=== PATIENT | male | born 1995 | race Caucasian/White ===

== ENCOUNTER 2017-08-20 02:36 | Emergency (ER) | payer OTHER ==
[2017-08-20 02:41] VITALS: BP 125/74; PULSE 70; RESP 16; TEMP 98.6; O2SAT 96
--- NOTE | 2017-08-20 02:52 | EDPHY ---
H & P Stated Complaint: left side of neck swelling sore throat HPI/ROS: HPI CHIEF COMPLAINT: Left neck swelling and swelling underneath the left side of the tongue HISTORY OF PRESENT ILLNESS: This patient is a 22-year-old male, is otherwise healthy no significant medical history does not take any daily medications he presents emergency room with swelling to left side of his neck and under his left tongue worse over the past 48 hr. He reports no fever. No trouble swallowing. Denies any trauma. States he has had a salivary stone in the past. Past Medical History: Salivary stone. Past Surgical History: Denies recent surgery Social History: History of Polysubstance abuse Family History: Denies ROS REVIEW OF SYSTEMS: A comprehensive 10 point review of systems is otherwise negative aside from elements mentioned in the history of present illness. Exam Constitutional well nontoxic no acute distress triage nursing summary reviewed , vital signs reviewed, awake/alert. Eyes normal conjunctivae and sclera, EOMI, PERRLA. HENT left submandibular region is full and tender consistent with submandibular lymphadenopathy in 1 particular region possibly salivary gland, additionally under his left side of his tongue the salivary gland is swollen and there is a white lesion at the head of the opening of the salivary gland, no signs of Pardeep's, uvula midline, posterior pharynx unremarkable, moist mucus membranes, no epistaxis, neck supple/ no meningismus, no raccoon eyes. Respiratory clear to auscultation bilaterally, normal breath sounds, no respiratory distress, no wheezing. Cardiovascular rate normal, regular rhythm, no murmur, no edema, distal pulses normal. Gastrointestinal soft, non-tender, no rebound, no guarding, normal bowel sounds, no distension, no pulsatile mass. Genitourinary no CVA tenderness. Musculoskeletal no midline vertebral tenderness, full range of motion, no calf swelling, no tenderness of extremities, no meningismus, good pulses, neurovascularly intact. Skin pink, warm, & dry, no rash, skin atraumatic. Neurologic awake, alert and oriented x 3, AAOx3, moves all 4 extremities equally, motor intact, sensory intact, CN II-XII intact, normal cerebellar, normal vision, normal speech. Psychiatric normal mood/affect. Heme/Lymph/Immune no lymphadenopathy. Differential Diagnosis: Includes but is not limited to in a particular order salivary gland stone, obstructing salivary gland, salivary gland infection Medical Decision Making: Plan for this patient appears well nontoxic. I recommend he sucks on lemon drops, additionally manipulated his salivary gland with gentle manipulation massage, additionally warm compresses. Additionally return to the ER for worsening symptoms. Additionally follow up with ENT. ENT referral provided. Return if worse he understands. This includes worsening pain, swelling, fever. Source: Patient - Personal History Current Tetanus/Diphtheria Vaccine: Yes Current Tetanus Diphtheria and Acellular Pertussis (TDAP): Yes - Medical/Surgical History Hx Asthma: Yes Hx Chronic Respiratory Disease: No Hx Diabetes: No Hx Cardiac Disease: No Hx Renal Disease: No Hx Cirrhosis: Yes Hx Alcoholism: No Hx HIV/AIDS: No Hx Splenectomy or Spleen Trauma: No Other PMH: teeth surgery - Social History Smoking Status: Current every day smoker Constitutional: Initial Vital Signs Temperature (C) 37.0 C 08/20/17 02:38 Heart Rate 70 08/20/17 02:38 Respiratory Rate 16 08/20/17 02:38 Blood Pressure 125/74 H 08/20/17 02:38 O2 Sat (%) 96 08/20/17 02:38 O2 Delivery Mode Room Air Allergies/Adverse Reactions: Penicillins Allergy (Verified 08/20/17 02:41) Home Medications: Medication Instructions Recorded Albuterol [Proventil Inhaler] 2 puffs IH Q4 12/30/12 Cetirizine [ZyrTEC 10 mg (RX)] 10 mg PO DAILY 12/30/12 Carbamazepine 08/20/17 OLANZapine 08/20/17 Sertraline HCl 08/20/17 Departure - Departure Disposition: Home, Routine, Self-Care Clinical Impression: Stone of salivary gland or duct Condition: Good Instructions: Sialoadenitis (ED) Additional Instructions: 1. Warm compresses to your neck. 2. Suck on lemon drops. 3. Gentle massage of your gland underneath your tongue 4. Follow up with ENT. 5. Return to the emergency room if you have worsening symptoms questions or concerns. Referrals: NONE *PRIMARY CARE P,. [Primary Care Provider] - As per Instructions Huy Thompson MD [Medical Doctor] - As per Instructions
== END 2017-08-20 03:27 | disposition home or self-care (01) ==
DX: K11.5 Sialolithiasis (principal); J45.909 Unspecified asthma, uncomplicated; F17.200 Nicotine dependence, unspecified, uncomplicated

== ENCOUNTER → 2017-10-22 | Outpatient (CLI) | payer OTHER | LOC: BMCIMAGING 13:45 | PROVIDERS: ATTEND Family Medicine | DX: M25.461 Effusion, right knee (principal); M25.462 Effusion, left knee ==

== ENCOUNTER 2017-11-18 06:35 | Inpatient (IN) | payer OTHER ==
[2017-11-18] MEDS ORDERED: KETOROLAC 30 MG/1 ML SDV IVP ONE (07:12)
--- NOTE | 2017-11-18 07:24 | EDPHY ---
HPI/HX/ROS/PE/MDM Narrative: CHIEF COMPLAINT: Rectal pain HPI: The patient is a 22-year-old male with a history of prior polysubstance abuse. He complains of right-sided rectal pain for approximately the last 4 days. He describes the pain as severe and sharp, worse with sitting and bowel movement. He does describe some mild blood in stool and previous duct harder stools although none currently. He denies fever or abdominal pain. 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 He denies trauma to her rectum. REVIEW OF SYSTEMS: Aside from elements discussed in the HPI, a comprehensive 10-point review of systems was reviewed and is negative. PMH: History of polysubstance abuse, currently recovering. SOCIAL HISTORY: Student. Single. Denies current substance abuse. PHYSICAL EXAM: General:Patient is alert, in no acute distress. ENT:Eyes are normal to inspection. ENT inspection normal. Neck: Normal inspection. Full range of motion. Respiratory:No respiratory distress. Breath sounds normal bilaterally. Cardiovascular: Regular rate and rhythm. Strong peripheral pulses. Normal cap refill. Abdomen:The abdomen is nontender to palpation. There are no peritoneal signs. There are normal bowel sounds. Rectal: External exam normal. No discharge. Tenderness in the right side on very superficial digital rectal exam. Back: Normal to inspection. No tenderness to palpation. Skin: Normal color. No rash. Warm and dry. Extremities: Normal appearance. Full range of motion. Neuro: Oriented x3. Normal motor function. Normal sensory function. ED Course: 07: Consulted Dr. Gutierrez from Surgery. He recommends CT and will evaluate patient. CTAP, read by Lul as positive for perianal abscess, multiloculated. Matt at bedside 0830. Plan for OR drainage and admission. - Data Points Laboratory Results: Laboratory Results 11/18/17 07:15 11/18/17 07:15 11/18/17 11/18/17 07:15 07:15 WBC 15.06 10^3/uL H 10^3/uL (3.80-9.50) RBC 4.60 10^6/uL 10^6/uL (4.40-6.38) Hgb 12.9 g/dL L g/dL (13.7-17.5) Hct 38.4 % L % (40.0-51.0) MCV 83.5 fL fL (81.5-99.8) MCH 28.0 pg pg (27.9-34.1) MCHC 33.6 g/dL g/dL (32.4-36.7) RDW 12.1 % % (11.5-15.2) Plt Count 300 10^3/uL 10^3/uL (150-400) MPV 9.8 fL fL (8.7-11.7) Neut % (Auto) 75.6 % H % (39.3-74.2) Lymph % (Auto) 13.8 % L % (15.0-45.0) Swisher % (Auto) 7.7 % % (4.5-13.0) Eos % (Auto) 2.0 % % (0.6-7.6) Baso % (Auto) 0.5 % % (0.3-1.7) Nucleat RBC Rel Count 0.0 % % (0.0-0.2) Absolute Neuts (auto) 11.39 10^3/uL H 10^3/uL (1.70-6.50) Absolute Lymphs (auto) 2.08 10^3/uL 10^3/uL (1.00-3.00) Absolute Monos (auto) 1.16 10^3/uL H 10^3/uL (0.30-0.80) Absolute Eos (auto) 0.30 10^3/uL 10^3/uL (0.03-0.40) Absolute Basos (auto) 0.07 10^3/uL 10^3/uL (0.02-0.10) Absolute Nucleated RBC 0.00 10^3/uL 10^3/uL (0-0.01) Immature Gran % 0.4 % % (0.0-1.1) Immature Gran # 0.06 10^3/uL 10^3/uL (0.00-0.10) Sodium 140 mEq/L mEq/L (135-145) Potassium 3.8 mEq/L mEq/L (3.5-5.2) Chloride 105 mEq/L mEq/L (97-110) Carbon Dioxide 22 mEq/l mEq/l (22-31) Anion Gap 13 mEq/L mEq/L (8-16) BUN 13 mg/dL mg/dL (7-23) Creatinine 0.8 mg/dL mg/dL (0.7-1.3) Estimated GFR > 60 Glucose 161 mg/dL H mg/dL (70-100) Calcium 9.1 mg/dL mg/dL (8.5-10.4) Medications Given: Discontinued Medications Ketorolac Tromethamine (Toradol) 30 mg IVP EDNOW ONE Stop: 11/18/17 07:13 Last Admin: 11/18/17 07:18 Dose: 30 mg General Time Seen by Provider: 11/18/17 06:51 Initial Vital Signs: Initial Vital Signs Temperature (C) 36.6 C 11/18/17 06:37 Heart Rate 103 H 11/18/17 06:37 Respiratory Rate 18 11/18/17 06:37 Blood Pressure 102/68 11/18/17 06:37 O2 Sat (%) 95 11/18/17 06:37 O2 Delivery Mode Room Air Allergies/Adverse Reactions: Penicillins Allergy (Verified 11/18/17 06:41) Home Medications: Medication Instructions Recorded Albuterol [Proventil Inhaler] 2 puffs IH Q4 12/30/12 Cetirizine [ZyrTEC 10 mg (RX)] 10 mg PO DAILY 12/30/12 Carbamazepine 08/20/17 OLANZapine 08/20/17 Sertraline HCl 08/20/17 Meloxicam 15 mg PO 11/18/17 Departure - Departure Disposition: [facility] Clinical Impression: Sherrill-rectal abscess Condition: Fair Referrals: NONE *PRIMARY CARE P,. [Primary Care Provider] - As per Instructions
[2017-11-18 07:26] LABS: PLATELET COUNT 300 10^3/uL (150-400)
[2017-11-18] MEDS ORDERED: IOPAMIDOL (ISOVUE-300) 100 ML BTL ONE (07:56)
[2017-11-18] MEDS ORDERED: ERTAPENEM 1 GM VIAL IVP ONE (09:05)
[2017-11-18] MEDS ORDERED: HYDROmorphONE/DILAUDID 2 MG/ML INJ IVP ONE (09:05)
[2017-11-18] MEDS ORDERED: NS 1,000 ML IV ONE (09:05)
[2017-11-18] MEDS ORDERED: ONDANSETRON 4 MG/2 ML VIAL IVP ONE (09:18)
[2017-11-18] MEDS ORDERED: KETOROLAC 30 MG/1 ML SDV IVP PRN (09:28)
[2017-11-18] MEDS ORDERED: HYDROmorphONE/DILAUDID 1 MG/ML INJ IVP PRN (09:30)
--- NOTE | 2017-11-18 10:15 | GHP ---
[f rep st] PREOP HISTORY AND PHYSICAL DATE OF ADMISSION: 11/18/2017 ADMITTING DIAGNOSIS: Perirectal abscess. 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 He has complained of perirectal pain for the last 3-4 days. He does not recall passing a hard stool. He did eat a bagel with cream cheese at 6:45 this morning. 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 He is being evaluated for ankylosing spondylitis. He does not recall having David's syndrome. He did have melena 1 month ago, but he is taking nonsteroidal anti- inflammatories on an aggressive basis. He was seen in the ER and a CAT scan of the abdomen and pelvis was performed. It showed no evidence of Crohn disease. His abscess is a horseshoe perirectal abscess. SOCIAL HISTORY: He has been sober for 1 year from alcohol abuse. He does have vape nicotine approximately every hour. He had an adverse reaction to penicillin as manifested by a rash as a baby. CURRENT MEDICATIONS: Include Zoloft 100 mg at bedtime, Zyprexa 5 mg at bedtime , Tegretol 200 mg twice a day, meloxicam 15 mg at bedtime, and he has used Aleve for the last 3 days. PAST MEDICAL HISTORY: He has had wisdom tooth extraction. There is no history of rheumatic fever, tuberculosis or hepatitis, and was recently tested for hepatitis and TB ( negative) because of anticipated immunotherapy in the future. There is no history of transfusions. He is unclear if he has ever had a seizure when he was abusing alcohol. He does not think he has ever had a concussion. His left upper central and lateral incisors and canine were knocked out at one point and they were repositioned. They are in place and viable. He does have asthma and uses an albuterol inhaler on an as needed basis. He had a salivary duct stone removed from his left submandibular salivary duct 1 month ago (office procedure). There are no limitations on his activity. Six weeks ago he had a steroid taper over 10 days starting at 60 mg a day. There are no limits on his activities. PHYSICAL EXAMINATION: He is awake and alert. Skull is normocephalic and atraumatic. He is oriented to person, place, and time. He is pleasant and appropriate. HEENT: Skull is normocephalic. He has normal dental occlusion. His neck is unremarkable. His dentition appears to be in order. NECK: There is no cervical, supraclavicular, axillary or inguinal lymphadenopathy. PULMONARY: His lungs are clear to auscultation. CARDIAC: Cardiac exam shows S1, S2 to be normal. There is a normal split of S2. There are no murmurs, rubs, or gallops. ABDOMEN: Abdomen is soft and nontender. He has normoactive bowel sounds. RECTAL: Rectal examination is not performed. IMPRESSION: Patient with horseshoe perirectal abscess by CT. There is no evidence of Crohn disease on CT. PLAN: I plan to take him to the operating room 8 hours after his bagel consumption for I and D of the perirectal abscess and possible fistulectomy. In the meantime, he will receive ertapenem. He will be watched closely in the ER after receiving that to make sure he does not have a reaction. Transient fecal incontinence and the remote chance of need for sphincter repair has been discussed as has recurrence potential. /[id number]/MODL MTDD
[2017-11-18] MEDS: LR 1,000 ML IV SCH ×2 (13:03→21:57)
[2017-11-18] MEDS ORDERED: BACITRACIN 50,000 UNITS/10 ML SYR IRR ONE (13:07)
[2017-11-18] MEDS ORDERED: LR 1,000 ML IV ONE (13:24)
[2017-11-18] MEDS ORDERED: PROPOFOL 200 MG/20 ML VIAL ONE (13:41)
[2017-11-18] MEDS ORDERED: fentaNYL 250 MCG/5 ML INJ ONE (13:41)
[2017-11-18] MEDS ORDERED: ONDANSETRON 4 MG/2 ML VIAL ONE (13:48)
[2017-11-18] MEDS ORDERED: DEXAMETHASONE 4 MG/ML VIAL ONE (13:48)
[2017-11-18] MEDS ORDERED: ROCURONIUM 50 MG/5 ML VIAL ONE (14:35)
[2017-11-18] MEDS ORDERED: SUCCINYLCHOLINE CHLORIDE 200 MG/10 ML SYR IVP ONE (14:35)
[2017-11-18] MEDS ORDERED: MIDAZOLAM 2 MG/2 ML VIAL ONE (14:43)
[2017-11-18] MEDS ORDERED: LR 500 ML IV PRN (15:27)
[2017-11-18] MEDS ORDERED: HYDROCODONE/APAP 5/325 TAB PO PRN (15:27)
[2017-11-18] MEDS ORDERED: ACETAMINOPHEN 500 MG TAB PO PRN (15:27)
[2017-11-18] MEDS ORDERED: NALOXONE HCL 0.4 MG/ML INJ IVP PRN (15:27)
[2017-11-18] MEDS ORDERED: ALBUTEROL 3 ML DEYVIAL IH PRN (15:27)
[2017-11-18] MEDS ORDERED: HYDROmorphONE/DILAUDID 2 MG/ML INJ IVP PRN (15:27)
[2017-11-18] MEDS ORDERED: ONDANSETRON 4 MG/2 ML VIAL IVP PRN (15:27)
[2017-11-18] MEDS ORDERED: PROMETHAZINE HCL 25 MG/ML INJ IVP PRN (15:27)
[2017-11-18] MEDS ORDERED: oxyCODONE IR 5 MG TAB PO PRN (15:27)
--- NOTE | 2017-11-18 15:27 | PDANEPAE ---
ANE Past Medical History - Cardiovascular History Hx Hypertension: No Hx Arrhythmias: No Hx Chest Pain: No Hx Coronary Artery / Peripheral Vascular Disease: No Hx CHF / Valvular Disease: No Hx Palpitations: No - Pulmonary History Hx COPD: No Hx Asthma/Reactive Airway Disease: No Hx Recent Upper Respiratory Infection: No Hx Oxygen in Use at Home: No Hx Sleep Apnea: No - Endocrine History Hx Diabetes: No Obesity: no ANE Review of Systems Review of systems is: negative Review of Systems: - Exercise capacity Exercise capacity: >=4 METS ANE Patient History - Allergies Allergies/Adverse Reactions: Penicillins Allergy (Verified 11/18/17 09:57) Rash - Home Medications Home medications: home medication list seen and reviewed Home Medications: Meloxicam [Meloxicam] 15 mg PO HS 11/18/17 [Last Taken 11/18/17] OLANZapine [OLANZapine (*)] 5 mg PO HS 11/18/17 [Last Taken 11/17/17] Sertraline HCl [Zoloft 100mg (*)] 100 mg PO HS 11/18/17 [Last Taken 11/17/17] carBAMazepine [Tegretol] 200 mg PO BID 11/18/17 [Last Taken 11/17/17] - NPO status NPO Since - Liquids (Date): 11/18/17 NPO Since - Liquids (Time): 06:30 NPO Since - Solids (Date): 11/18/17 NPO Since - Solids (Time): 06:30 - Smoking Hx Smoking Status: Current every day smoker ANE Labs/Vital Signs - Labs Result Diagrams: 11/18/17 07:15 11/18/17 07:15 - Vital Signs Blood Pressure: 116/80 Heart Rate: 85 Respiratory Rate: 16 O2 Sat (%): 94 Height: 182.88 cm Weight: 63.503 kg ANE Physical Exam - Airway Neck exam: FROM Mallampati Score: Class 1 Mouth exam: normal dental/mouth exam - Pulmonary Pulmonary: no respiratory distress - Cardiovascular Cardiovascular: regular rate and rhythym - ASA Status ASA Status: II ANE Anesthesia Plan Anesthesia Plan: general endotracheal anesthesia Urgent/Emergent Case: Yogesh chowdary completed preop but documented later for safe timely pt care
--- NOTE | 2017-11-18 15:27 | POSTANESTH ---
Post Anesthetic Evaluation Cardiovascular Status: Normal, Stable Respiratory Status: Normal, Stable, Other, See Comment (bronchospasm tx with albuterol neb) Level of Consciousness/Mental Status: Can Participate in Eval Pain Control: Adequate, Prn Tx Ordered Nausea/Vomiting Control: Adequate, Prn Tx Ordered Complications Possibly Related to Anesthesia: None Noted
[2017-11-18] MEDS ORDERED: ALBUTEROL 3 ML DEYVIAL ONE ×2 (15:49→16:50)
--- NOTE | 2017-11-18 15:59 | POSTOPPROG ---
Post Op Note Date of Operation: 11/18/17 Surgeon: Luis Gutierrez Anesthesia: GET(General Endotracheal) Pre-op Diagnosis: perirectal abscess Post-op Diagnosis: perirectal abscess with fistula Indication: perirectal abscess Procedure: I&D perirectal abscess with fistulectomy Findings: perirectal abscess with fistula Inf/Abcess present in the surg proc area at time of surgery?: Yes Depth: Deep Incisional (Fascial) EBL: Minimal Total fluids administered: 500 Complications: none Specimen(s): culture
[2017-11-18] MEDS ORDERED: ALBUTEROL 60 PUFFS/8 GM MDI IH PRN (16:26)
[2017-11-18] MEDS ORDERED: MIDAZOLAM 2 MG/2 ML VIAL IVP ONE (16:27)
[2017-11-18] MEDS ORDERED: ACETAMINOPHEN 500 MG TAB ONE (16:28)
[2017-11-18] MEDS: ACETAMINOPHEN 500 MG TAB PO PRN (16:29)
[2017-11-18] MEDS ORDERED: fentaNYL 100 MCG/2 ML INJ ONE (16:58)
[2017-11-18] MEDS: fentaNYL 100 MCG/2 ML INJ IVP PRN ×4 (17:00→19:14)
--- NOTE | 2017-11-18 18:42 | GOP ---
[f rep st] OPERATIVE REPORT DATE OF OPERATION: 11/18/2017 SURGEON: Luis Gutierrez MD ANESTHESIA: General endotracheal anesthesia. PREOPERATIVE DIAGNOSIS: Perirectal abscess. POSTOPERATIVE DIAGNOSIS: Perirectal abscess with fistula. PROCEDURE PERFORMED: Incision and drainage of perirectal abscess with fistulectomy. FINDINGS: Perirectal abscess with fistula. SPECIMENS: Cultures of the purulent drainage were obtained and sent as the only specimen. INDICATIONS: Perirectal abscess. DESCRIPTION OF PROCEDURE: The patient was placed on the operating table in supine position. After induction of adequate general endotracheal anesthesia, he was placed in lithotomy position using candy-cane stirrups. The perineum was carefully prepped and draped. A surgical time-out was carried out and agreed to by all members of the operative team. A rectal speculum was placed and as expected, a posterior fissure connection was identified. It drained a moderate amount of purulent material. A flexible probe was carefully placed into the tract and I divided the tissue down to track using Bovie electrocautery. All areas were felt to be totally drained at this point. Irrigation was carried out. Hemostasis achieved with Bovie electrocautery. A rectal whistle pack was placed. This is done after the abscess was carefully packed with quarter-inch iodoform gauze. A bulky perineal dressing was applied. Rescue suture been placed in the end of the catheter. The patient is transferred to recovery in stable and satisfactory condition. /[id number]/MODL MTDD
--- NOTE | 2017-11-18 20:13 | GCON ---
[f rep st] CONSULTATION INTERNAL MEDICINE CONSULTATION DATE OF CONSULTATION: 11/18/2017 REQUESTING PHYSICIAN: Luis Gutierrez MD, from General Surgery. REASON FOR CONSULTATION: Medical opinion regarding acute respiratory failure. HISTORY OF PRESENT ILLNESS: The patient is a 22-year-old male who presented to the emergency room th morning with perirectal pain for 4 days. He was diagnosed with a horseshoe perirectal abscess and went to surgery this afternoon for incision and drainage with Dr. Gutierrez. He was found to have a fi stula. He has a reported penicillin rash which was just a one-time rash when he was 1-year-old, and he was administered IV Invanz at 9 o'clock this morning. He went to surgery about 3 o'clock in the a fternoon. Going into surgery, he felt fine except for his perirectal pain. Per Anesthesia, he had s ignificant bronchospasm during extubation and was given albuterol nebulizer and a one-time IV Decadro n while still in surgery. When he first came out to PACU, he was in severe respiratory distress. He was sitting up in bed, diaphoretic, saturating only 87% on 10 L. His chest x-ray at that time showe d new bilateral pulmonary infiltrates. The patient says he is coughing and it feels like an asthma a ttack. As he has had more time in PACU, he has improved. His oxygen needs were going down, and his shortness of breath was starting to improve. He does describe some chest tightness, but he is curren tly much more comfortable than he was just a short time ago. PAST MEDICAL HISTORY: 1. Reactive arthritis of the knee, recently completed a steroid taper 6 weeks ago. Currently, [facility] as an outpatient with Rheumatology to try to determine underlying rheumatologic disease. His C RP was elevated at 50. He was found to be HLA-B27 positive. They are considering a possible connect ion to psoriasis or Crohn disease. Final diagnosis yet to be determined. 2. Asthma. 3. Possible seizure related to previous history of substance abuse. MEDICATIONS: Please see computerized record for full detailed list. ALLERGIES: Penicillin which involved a rash as a baby. SOCIAL HISTORY: He is currently undergoing treatment for addiction. Previously abused cocaine, Adde rall, and marijuana as well as alcohol. He has been sober for 1 year. He denies ever using IV drugs . He continues to nicotine. He is currently attending , lives in an apartment alone. He grew up in [place], and his mom is a local internal medicine physician, currently practicing in [facility]. REVIEW OF SYSTEMS: Complete review of systems obtained. Review of systems negative regarding consti tutional, HEENT, GI, pulmonary, vascular, , hematology, skin, muscular, endocrine, psych, except fo r positives and negatives as in HPI. FAMILY HISTORY: Reviewed, noncontributory to the presenting complaint. PHYSICAL EXAMINATION: GENERAL: Well-developed, well-nourished male. VITAL SIGNS: Temp is 38.3, pu lse 141, blood pressure 118/75, saturating 90% on 5 L. EYES: Normal conjunctivae. Pupils equal and react to light. ENT: Normal ears and nose. Hearing intact. Normal teeth. Oropharynx moist. NEC K: Trachea midline. No thyromegaly. CHEST: Normal effort. LUNGS: Clear to auscultation bilatera lly. CARDIOVASCULAR: Regular rate and rhythm. No murmur. No lower extremity edema. ABDOMEN: Sof t, nontender. No hepatosplenomegaly. SKIN: Warm, dry, intact. No rash. MUSCULOSKELETAL: No cyan osis or clubbing. Strength 5/5 in upper and lower extremities. NEUROLOGIC: Cranial nerves intact. Normal sensation to light touch. PSYCH: Alert and oriented x3. Normal mood and affect. Normal ju dgment and insight. Normal memory. LABORATORY DATA: White count 15.06, hematocrit 38.4, platelets 300. Sodium 140, potassium 3.8, chlo ride 105, bicarb 22, BUN 13, creatinine 0.8, glucose 161. Chest x-ray reviewed by me. My personal interpretation is bilateral pulmonary infiltrates. This carlos e was personally discussed with Dr. Gutierrez regarding postoperative course and respiratory failure. ASSESSMENT AND PLAN: 1. Acute respiratory failure with new bilateral pulmonary infiltrates. He is now rapidly starting t o improve, I assume due to the IV Decadron he received in the OR. Therefore, this does appear to be a steroid responsive phenomenon. I wonder whether he may have had a drug reaction to the Invanz, alt fabio the timing is a little off considering Invanz dose was 9:00 a.m. I will continue him on IV Obdulia u-Medrol. We will recheck a chest x-ray in the morning. We will monitor in the step-down unit overn ight. 2. Perirectal abscess with fistula status post incision and drainage. Cultures have been sent. He also has fever and tachycardia consistent with possible sepsis. We will check blood cultures. We wi ll change his antibiotic to Levaquin and Flagyl, and Infectious Disease consultation. 3. Reactive arthritis, currently workup in process with Rheumatology to determine final diagnosis. Psoriasis and Crohn disease are being considered, incidentally noted to be HLA-B27 positive. 4. History of addiction. He is on multiple psych medications, presumably related to this process. These will be continued. CODE STATUS: Full. ADMISSION STATUS: 1. Will admit to inpatient. Anticipate greater than 2 midnights required for stabilization. 2. DVT prophylaxis. He is low risk. Will ambulate early. /[id number]/MODL
[2017-11-18] MEDS ORDERED: SERTRALINE HCL 100 MG TAB PO SCH ×2 (21:00→21:30)
[2017-11-18] MEDS ORDERED: OLANZapine 5 MG TAB PO SCH ×2 (21:00→21:30)
[2017-11-18] MEDS ORDERED: carBAMazepine 200 MG TAB PO SCH (21:00)
[2017-11-18] MEDS: carBAMazepine 200 MG TAB PO SCH (21:55)
[2017-11-18] MEDS: PSYLLIUM METAMUCIL 1 PKT PO SCH (21:56)
[2017-11-18] MEDS: IPRATROPIUM/ALBUTEROL 3 ML DEYVIAL IH SCH (22:58)
[2017-11-18] MEDS: HYDROmorphone HCL/NS 0.5 MG/ML SYR IVP PRN (22:59)
[2017-11-18] MEDS: methylPREDNISolone SOD SUCC 125 MG/2 ML VIAL IVP SCH (23:02)
[2017-11-19 05:31] LABS: PLATELET COUNT 290 10^3/uL (150-400)
[2017-11-19] MEDS: IPRATROPIUM/ALBUTEROL 3 ML DEYVIAL IH SCH ×3 (05:53→16:01)
[2017-11-19] MEDS: methylPREDNISolone SOD SUCC 125 MG/2 ML VIAL IVP SCH ×2 (06:35→12:41)
[2017-11-19] MEDS: HYDROmorphone HCL/NS 0.5 MG/ML SYR IVP PRN (06:41)
[2017-11-19] MEDS: carBAMazepine 200 MG TAB PO SCH (08:38)
[2017-11-19] MEDS: PSYLLIUM METAMUCIL 1 PKT PO SCH (08:38)
--- NOTE | 2017-11-19 09:59 | PDMN ---
Medical Necessity Medical necessity: [facility] Gastroenterlogy Rectal abscess 1 day- K 61.1 -I/D of perirectal abscess with fistulectomy- post op acute resp. failure with new bilat. pulm. infiltrates, further monitoring eval and tx needed anticipate > 2 midnights
--- NOTE | 2017-11-19 10:04 | ASMTCASEMG ---
Living Arrangements What is your living Answers: With One Parent arrangement? Who do you live with? Type Of Residence What kind of residence do Answers: House you live in? Discharge Plan Comments Coordination Status Comments Notes: Patient is a 22yo single male who was admitted for a rectal abscess who is HLA-B27 positive and has reactive arthritis in his knees. Patient has been sober 1 year from alcohol abuse. Patient will go to the OR for I and D of the perirectal abscess and possible fistulectomy. No therapies have been ordered. Patient will most likely be able to D/C independently to his home in [place]. CM will follow. Date Signed: 11/19/2017 10:03 AM Electronically Signed By:Aziza Marinelli LCSW
[2017-11-19] MEDS ORDERED: FUROSEMIDE 20 MG/2 ML VIAL IVP ONE (11:21)
--- NOTE | 2017-11-19 13:01 | HOSPPROG ---
Hospitalist Progress Note Assessment/Plan: # pulmonary infiltrates - drug reaction vs negative pressure pulm edema vs other - clinically resolved, although still significant on CXR # rectal abscess/fistula s/p I&D - levaquin and flagyl, to be adjusted by ID # reactive arthritis, HLA-B27 positive - following up as outpatient # history of substance abuse Subjective: feels much better today Objective: Vital Signs Temp Pulse Resp BP Pulse Ox 36.5 C 56 L 19 93/45 L 100 11/19/17 08:35 11/19/17 08:35 11/19/17 08:35 11/19/17 08:35 11/19/17 08:35 Laboratory Results 11/19/17 05:18 11/19/17 05:18 11/18/17 11/19/17 11/20/17 05:59 05:59 05:59 Intake Total 2200 Output Total 760 Balance 1440 chart reviewed CXR personally reviewed - Physical Exam Constitutional: no apparent distress, appears nourished Cardiovascular: regular rate and rhythym, no murmur, rub, or gallop Respiratory: no respiratory distress, no rales or rhonchi Gastrointestinal: normoactive bowel sounds, soft, non-tender abdomen, no palpable masses ICD10 Worksheet Patient Problems: Problems Problem Status Onset Sherrill-rectal abscess Acute
[2017-11-19] MEDS ORDERED: metroNIDAZOLE 500 MG TAB PO SCH ×2 (15:00→22:00)
[2017-11-19] MEDS ORDERED: HYDROmorphONE/DILAUDID 2 MG TAB PO PRN (15:01)
[2017-11-19] MEDS: ACETAMINOPHEN 500 MG TAB PO PRN (15:07)
--- NOTE | 2017-11-19 15:36 | GCON ---
[f rep st] CONSULTATION PULMONARY CONSULT DATE OF CONSULTATION: 11/19/2017 HISTORY OF PRESENT ILLNESS: This patient is a 22-year-old male who is in the middle of a workup for a possible ankylosing spondylitis, found to have HLA-B27 positive. The workup is under way at this [facility], and he has arthritis of his knees. In any case, he was complaining of abdominal perirectal molly n and came to the emergency department where a CT scan showed a perirectal abscess. He was taken for incision and drainage by Dr. Gutierrez. The surgery itself was uneventful, but in the recovery room po st extubation he developed severe shortness of breath with stridor and oxygen desaturation and was pl aced on a non-rebreather. A chest x-ray showed diffuse bilateral infiltrates. He had been given Inv anz prior to surgery as well as Flagyl and did have a history of a penicillin allergy. The penicilli n allergy story occurred while he was an , and there was some concern about a viral exanthem at that time, but has tried to avoid penicillins since then. Otherwise, he has had no other episodes l fernandez this. He was observed in the intensive care unit overnight and felt much better today with no di fficulty with breathing. However, he did desaturate while walking around to the upper 80s. REVIEW OF SYSTEMS: Otherwise negative. PAST MEDICAL HISTORY: Includes: 1. HLA-B27 positive history. 2. Remote polysubstance use. 3. History of seizure. 4. History of asthma with no recent exacerbations. He did get some recent steroids, presumably rela nayana to the HLA-B27 status. SOCIAL HISTORY: He does vape some nicotine, but no current alcohol or substance abuse. PAST SURGICAL HISTORY: Includes salivary duct surgery as well as wisdom teeth extractions. FAMILY HISTORY: Noncontributory at this time. MEDICATIONS: Include DuoNeb, Tegretol, now ceftriaxone, Solu-Medrol 60 mg IV q.6 hours, Flagyl, cade zapine, and Zoloft. PHYSICAL EXAM: VITAL SIGNS: He had a blood pressure of 102/50, heart rate of about 56, respirations 19, oxygen saturation was 100% on 3 L nasal cannula and 90% on room air at rest. VITAL SIGNS: He i s a very young, pleasant male in no apparent distress. Able to speak in full sentences without using accessory muscles for breathing. HEENT: Pupils equally round and reactive to light. Nonicteric an d noninjected. Mucous membranes moist without erythema or exudate. No evidence of thrush. NECK: S upple without adenopathy or jugular vein distention and no stridor. Breath sounds were clear to ausc ultation bilaterally. No wheezes, no rales, no coarse breath sounds. HEART: Regular rate and rhyth m without murmurs, rubs, or gallops. ABDOMEN: Soft, nontender, nondistended without hepatosplenomeg itzel. EXTREMITIES: No clubbing, cyanosis, or edema. NEUROLOGIC: Nonfocal, including cranial nerves , deep tendon reflexes. SKIN: Warm and dry, without evidence of rash. OBJECTIVE DATA: Includes a chest x-ray as described above. His white count was 15 yesterday, it is 12.6 today, hematocrit 36, platelets of 290. Potassium was 3.8 yesterday, 4.8 today as requested by his mother. BNP was only 57, but the basic metabolic panel was otherwise normal. ASSESSMENT AND PLAN: 1. Acute respiratory failure requiring high dose oxygen, which is nearly gone now. I think this is postobstructive pulmonary edema likely related to laryngeal spasm at the time of his extubation yeste rday. There is no evidence to support aspiration, no pre-existing symptoms to suggest blossoming pne umonia or infection at this time. His dropping white count may also be indicative of his antibiotics that he is getting for his perirectal abscess, but I do not believe this is present in his lungs. A procalcitonin is pending at this time. The white count may also be explained by the steroids that skinny cowan is currently getting, which can probably be discontinued. 2. Asthma. This does not appear to be an asthma exacerbation. I would use his normal medications. 3. Perirectal abscess is being managed by Surgery as well as Infectious Disease. He was on Invanz p reviously. He is now on ceftriaxone based on cultures. We will continue to follow. If his oxygen s aturation normalizes by this afternoon, he can probably go home. If it is still marginal, I would be in favor of watching him overnight to make sure things do in fact improve as anticipated. /[id number]/MODL
[2017-11-19 16:12] VITALS: BP 127/75
--- NOTE | 2017-11-19 16:22 | GCON ---
[f rep st] CONSULTATION DATE OF CONSULTATION: 11/19/2017 REFERRING PHYSICIAN: Raquel Cristobal MD REASON FOR CONSULTATION: Perirectal abscess. HISTORY OF PRESENT ILLNESS: Patient is a 22-year-old male with a complex recent history related to reactive arthritis of the knees dating back to last fall, who I am asked to see in consultation for perirectal abscess with assistance in antibiotic management. The patient complained of perirectal pain over the last 4 days. This was associated with fever and chills. He had some nausea without vomiting. He does describe having intermittent diarrhea for several months with admixed blood. CT scan of the abdomen and pelvis was performed in the emergency department yesterday with findings of a perirectal abscess measuring 4 cm mediolaterally by 1.5 cm. The patient subsequently underwent operative drainage yesterday with excision of a fistulous tract. Gram stain of the abscess showed 3+ white blood cells with 2+ GPCs in clusters, 2+ GPCs in chains, and 1+ gram-positive rods. Early growth of culture suggests a streptococcal species. The patient was given a dose of ertapenem yesterday at the time of presentation. When the patient awoke postoperatively, the patient described having a cough and shortness of breath, which was new. Chest x-ray showed bilateral infiltrates. These have now improved and the patient's respiratory status is improving as well although he does have some desaturation while off oxygen. He is currently receiving levofloxacin and metronidazole for his perirectal abscess. Given the above findings, I am now asked to assist in his ongoing management. PAST MEDICAL HISTORY: Reactive arthritis as above. PAST SURGICAL HISTORY: As above, wisdom tooth extraction. CURRENT MEDICATIONS: Levofloxacin 750 mg IV daily, metronidazole 500 mg IV daily, Metamucil b.i.d., sertraline 100 mg p.o. q.h.s., Solu-Medrol 60 mg IV q.6 hours, albuterol as needed, DuoNeb q.6 hours, Tegretol 200 mg p.o. b.i.d., meloxicam 50 mg p.o. daily. ALLERGIES: Possible penicillin allergy; this is characterized by rash when the patient was a child and unclear if due to penicillin or viral exanthem. His mother thinks he has tolerated cephalosporins in the past. SOCIAL HISTORY: Patient smokes 2 cigarettes per day and vapes frequently. The patient has a former history of alcoholism and has been sober for 1 year. No history of injection drug use. Sexual history is reviewed with patient today with some unprotected sexual encounters previously. REVIEW OF SYSTEMS: Outside that noted in the HPI, remainder of 10 system review is unremarkable. PHYSICAL EXAMINATION: VITAL SIGNS: Temperature maximum 38.3, temperature current 36.7, heart rate 100, respiratory rate 20, blood pressure 102/56, oxygen saturation 93% on room air. GENERAL: Patient is a thin male in no acute distress. He appears nontoxic. HEENT: There is no scleral icterus, conjunctival injection, or conjunctival petechiae. Oropharynx clear without lesions. Dentition is in good repair. There is no nasal discharge. There is no tenderness over the frontal maxillary or mastoid area. NECK: Supple without palpable lymphadenopathy or thyromegaly. CHEST: Clear to auscultation bilaterally without adventitious sounds. Respiratory effort is normal. CARDIOVASCULAR: Tachycardic without murmurs, gallops, rubs. ABDOMEN: Soft, nontender, nondistended. There is no palpable organomegaly. Bowel sounds are present. Perirectal: Incision site is clean with no purulent drainage. There is no surrounding erythema or induration. Area is nontender to palpation. MUSCULOSKELETAL: No cyanosis, clubbing, or edema. SKIN: No rashes present. No stigmata of endocarditis. Skin is warm and dry to touch. LYMPHATICS: No cervical or supraclavicular nodes. Bilateral small shotty inguinal nodes. NEUROLOGIC: Patient is alert and interacts appropriately with examiner. Cranial nerves 2-12 are grossly intact. Sensation is grossly intact. Muscle tone and bulk are normal. LABORATORY DATA: White blood cell count 12.6, hematocrit 36.7, platelets 290, neutrophils 90%. Serum creatinine 0.8, venous lactate 1.5 this a.m. Blood cultures x2 are pending. Perirectal abscess as outlined above. Chest x-ray shows bilateral pulmonary infiltrates. IMPRESSION: 1. Perirectal abscess: Marked improvement post incision and drainage. Gram stain is polymicrobial with likely enteric jana contributing. Culture results suggest possible growth of streptococcal species such as Streptococcus intermedius or constellatus such as from the Streptococcus anginosus group. Do not anticipate need for long course of antibiotic therapy as incision and drainage will likely be definitive therapy. 2. Pulmonary infiltrates: Doubt this represents allergic reaction to ertapenem given timing and history of penicillin allergy does not suggest severe IgE mediated process. Clinically improving with steroids and diuresis. 3. Reactive arthritis: The patient is continuing his care with Rheumatology. Given unprotected sexual encounters, will screen for HIV, syphilis, GC and chlamydia. 4. Suspect patient can complete antibiotic therapy with cephalexin and metronidazole orally at time of discharge for a total of 5 days of therapy. Thank you for this consultation. We will continue to follow the patient with you. /[id number]/MODL MTDD
[2017-11-19 17:03] LABS: HIV TYPE 1 AND 2 NEGATIVE (NEGATIVE)
--- NOTE | 2017-11-19 19:43 | GDS ---
[f rep st] DISCHARGE SUMMARY DISCHARGE DIAGNOSIS: Perirectal abscess. PROCEDURE PERFORMED: I and D of perirectal abscess with fistulectomy. CONDITION AT DISCHARGE: Improved. DISCHARGE DISPOSITION: Home. No dietary restrictions, but I suggest he avoid constipating foods, such as bananas, rice, applesauce, and cheese. Diet is regular texture. Medications on dischargeinclude: Tylenol 1000 mg every 8 hours as needed for pain. He will continue his meloxicam 15 mg p.o. q.h.s. He is not interested in narcotics at this point. He will continue Keflex 500 mg every 6 hours for 5 days and Flagyl 500 mg every 8 hours for 5 days. He will take Metamucil 2 packets p.o. b.i.d. for 30 days. He will continue his Tegretol 200 mg b.i.d., his Zoloft 100 mg p.o. q.h.s., his olanzapine 5 mg p.o. q.h.s. He is to clean his perineum with a handheld shower head or baby wipes after a bowel movement, and 3 times a day for the 1st week, 2 times a day for the 2nd week, 1 time a day for the 3rd week. He is to pass flatus only on a toilet to avoid soiling his clothing. He should also use feminine sanitary pads to protect clothing. He is to shower only. He will follow up with Dr. Al Amaro, Dr. Ruth Caceres, or Dr. Jose Lynch on 11/28. HOSPITAL COURSE: His hospital course was complicated by a postop exacerbation of his asthma. He experienced what appeared to be a reinflation pulmonary edema. This led to some infiltrates on chest X-Ray. Initially, there was concern whether this was a reaction to penicillins or whether this was in fact an infectious etiology. His oxygen requirements have come down dramatically over the first 12 hours postop. He now does not require any oxygen supplementation at all. His chest X-Ray is lagging his physical findings. Note is made that he also has HLA-B27 antigen positivity and he does have arthritis. I have indicated to his mother that it may be worthwhile to get him tested for a penicillin allergy to make sure he truly has one and that this may be important for him in the future. /[id number]/MODL MTDD
[2017-11-19] MEDS ORDERED: Meloxicam [Meloxicam] 15 MG PO SCH (21:00)
[2017-11-20 13:08] LABS: GC AMPLIFICATION GENPROBE NEGATIVE (NEGATIVE)
--- NOTE | 2017-11-24 10:28 | PQFORM ---
PHYSICIAN QUERY FORM Needs Your Response This query form is being sent to you to assure this patient record is coded properly. 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 Gutierrez, On his consultation, Dr. Fly Calero documents acute respiratory failure which resolved quickly. On your discharge summary, you stated this postop respiratory condition to be an exacerbation of his asthma and that he experienced a reinflation pulmonary edema. Can the diagnosis of postop acute respiratory failure be added to the discharge summary? Yes X_ No It was nor respiratory failure but re-expansion pulmonary edema Undetermined Other Thank you for clarifying, MARK Ruby HIM Coding INSTRUCTIONS FOR RESPONSE: Answer question by clicking on the "Edit Document" button. Move cursor to area below the stars. When complete, hit "Save." Click on the "Sign" button, then click "Sign" again. Type in your PIN and hit "Enter." MTDD
== END 2017-11-19 19:10 | disposition home or self-care (01) | DRG 356 ==
LOC: F3E 10:35 → OBSVTOIN 18:26 → F2N 19:55
PROVIDERS: ADMIT Surgery; ATTEND Surgery
PROC: 2Y43X5Z Packing of Anorectal Region using Packing Material (ICD-10-PCS; principal; 2017-11-18 14:00)
PROC: 0JB90ZZ Excision of Buttock Subcutaneous Tissue and Fascia, Open Approach (ICD-10-PCS; principal; 2017-11-18 14:00)
PROC: 0J990ZZ Drainage of Buttock Subcutaneous Tissue and Fascia, Open Approach (ICD-10-PCS; principal; 2017-11-18 14:00)
DX: K61.1 Rectal abscess (principal); K60.4 Rectal fistula; J45.901 Unspecified asthma with (acute) exacerbation; J81.0 Acute pulmonary edema; M02.30 Reiter's disease, unspecified site; F17.200 Nicotine dependence, unspecified, uncomplicated; F10.21 Alcohol dependence, in remission; Z88.0 Allergy status to penicillin
CPT/HCPCS: 96374; J0330; J0696; J1100; J1170; J1335; J1885; J1940; J1956; J2250; J2405; J2704; J2930; J3010; J7613; Q9967